=== PATIENT | female | born 2005 | race Caucasian/White ===

== ENCOUNTER 2025-03-16 00:52 | Emergency (ER) | payer MEDICAID ==
[~2025-03-16] VITALS: Ht 156.7 cm; Wt 66.6 kg
[2025-03-16 01:02] VITALS: BP 101/62; TEMP 36.8; O2SAT 98
[2025-03-16 01:04] VITALS: PULSE 82; RESP 16; O2SAT 100
[2025-03-16] MEDS: OXYMETAZOLINE HCL NASAL SPRAY 15ML BOTHNSTRLS SCH (01:15)
== END 2025-03-16 03:19 | disposition left against medical advice (07) ==
LOC: ER 00:52
DX: R04.0 Epistaxis (principal); R51.9 Headache, unspecified
CPT/HCPCS: 99282; Z7610 ×2; A4606